=== PATIENT | male | born 2000 | race Caucasian/White ===

== ENCOUNTER 2018-04-02 07:29 | Day surgery (SDC) | payer OTHER ==
[2018-04-02] MEDS ORDERED: SODIUM CHLORIDE 0.9% 10ML INJ IV ONE (08:00)
[2018-04-02] MEDS ORDERED: COSYNTROPIN 0.25 MG VIAL IV ONE (08:00)
[2018-04-02 10:30] LABS: BUN Blood Urea Nitrogen 15 mg/dL (6-20); Bicarbonate 27 mEq/L (21-31); Glucose Level 95 mg/dL (65-120); Potassium 4.4 mEq/L (3.6-5.0); Sodium Level 140 mEq/L (135-145)
== END 2018-04-02 09:40 | disposition home or self-care (01) ==
LOC: DS 07:29
PROVIDERS: ATTEND Internal Medicine
DX: E23.0 Hypopituitarism (principal); E87.8 Other disorders of electrolyte and fluid balance, not elsewhere classified; R53.83 Other fatigue; R59.1 Generalized enlarged lymph nodes
CPT/HCPCS: 36415; 80048; 82024; 82533; 83001; 83002; 83615; 84403; 86803; 96372; J0834